=== PATIENT | female | born 1950 | race Caucasian/White ===

== ENCOUNTER 2016-05-08 06:05 | Day surgery (SDC) | payer MEDICARE, OTHER ==
[2016-05-08] MEDS ORDERED: Lactated Ringers 1,000 ML IV ONE (06:18)
[2016-05-08] MEDS: Lactated Ringers 1,000 ML IV SCH ×2 (06:40→06:41)
[2016-05-08] MEDS ORDERED: Ketamine HCl 50 MG/ML IJ ONE (08:00)
[2016-05-08 09:55] VITALS: BP 147/78; PULSE 62; O2SAT 96
--- NOTE | 2016-05-08 11:09 | OP ---
SURGERY DATE/TIME: 05/08/2016 0740 PREOPERATIVE DIAGNOSES: 1) Epigastric pain. 2) Change in bowel habits. POSTOPERATIVE DIAGNOSES: 1) Mild to moderate gastritis. 2) Grade II esophagitis. 3) Scattered sigmoid diverticula. PROCEDURES: 1) Esophagogastroduodenoscopy with biopsy. 2) Colonoscopy. SURGEON: Dr. Stevenson. ANESTHESIA: Medications were given by the anesthesia department. BRIEF HISTORY: The patient is a 65 year old white female presenting now for endoscopic evaluation. The patient was felt to need to have evaluation due to presence of epigastric pain. The patient also reports abdominal pain off and on throughout the abdomen. She also had recent change in her bowel habits. The patient was felt the need to have endoscopic evaluation and she was appraised of the risks of the procedure including the risk of perforation, phlebitis, untoward reaction to medication, bleeding, missed lesions. The patient verbalized her understanding and desired to have the procedure performed. DESCRIPTION OF PROCEDURE: The patient was given the medications by the anesthesia department. She had continuous pulse oximetry, ECG monitoring, intermittent blood pressure monitoring and tidal CO2 monitoring during the examination. She was placed in the left lateral decubitus position. A bite block was placed and the flexible Olympus gastroscope was used to intubate the oropharynx. The scope was easily passed in the esophagus with ease and this appeared to be normal to the gastroesophageal junction where there appeared to be some erythema and friability. No mucosal lesions otherwise were noted. The scope was passed into the stomach where normal gastric rugal folds were seen and these distended nicely with insufflation of air. The scope was passed along the greater curvature of the stomach to the antrum. The pylorus was encountered and intubated. The duodenum inspected and found to be normal. The scope was withdrawn towards the stomach. A retroflex view was obtained of the lesser curvature, fundus and cardia regions of the stomach and these appeared normal. The scope was then redirected towards the gastric antrum and biopsies were obtained to rule out the presence of Helicobacter pylori-type organisms. The scope was removed from the patient. Next, a digital rectal examination was performed and revealed normal anal sphincter tone and no masses and no significant hemorrhoids. The flexible Olympus pediatric colonoscope was used to intubate the rectum. A view of the colon was developed sequentially to the cecum. Upon insertion and withdrawal, there was noted a few scattered sigmoid diverticula but no other mucosal lesions were encountered. The scope was removed from the patient who tolerated the procedure well and was sent back to OP recovery in good condition. The prep was noted to be fair to good.
[2016-05-08] MEDS ORDERED: DIPRIVAN 200 MG/20 ML IV ONE (15:18)
== END 2016-05-08 09:25 | disposition home or self-care (01) ==
LOC: SDC 06:05
PROVIDERS: ATTEND Family Medicine
PROC: 0DB68ZX Excision of Stomach, Via Natural or Artificial Opening Endoscopic, Diagnostic (ICD-10-PCS; principal; 2016-05-08)
PROC: 0DJD8ZZ Inspection of Lower Intestinal Tract, Via Natural or Artificial Opening Endoscopic (ICD-10-PCS; 2016-05-08)
DX: K29.70 Gastritis, unspecified, without bleeding (principal); K20.9 Esophagitis, unspecified; K57.90 Diverticulosis of intestine, part unspecified, without perforation or abscess without bleeding; R19.4 Change in bowel habit; I10 Essential (primary) hypertension; E78.5 Hyperlipidemia, unspecified; K21.9 Gastro-esophageal reflux disease without esophagitis
CPT/HCPCS: 00740; 00810; 36415; 88305; J2704

== ENCOUNTER 2017-11-19 11:12 | Emergency (ER) | payer MEDICARE, OTHER ==
[2017-11-19] MEDS ORDERED: BABY ASPIRIN 81 MG CHEW PO ONE (12:10)
--- NOTE | 2017-11-19 12:10 | ERPHSYRPT ---
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 states her pain radiated to the shoulders along her back "like where the yolk of a shirt would be", states the pain is worse when she makes certain movements. pt states she drove over here yesterday but the pain stopped so she decided to go home. Triage Nursing Assessment: pt is aox3, pupils perrl, pt afebrile, resps easy and non labored, radial pulses are strong and equal, slight edema noted to the bilat lower extremities. pt has no chest pain at this time. pt appears is no distress. Physician History: Patient is a 66-year-old female with her complaining of a sudden onset of central chest pain yesterday morning that lasted 45 minutes. It resolved but then she had chest "discomfort" later on in the day. Today she still has chest discomfort. Currently she has no chest pain or pressure at all. Yesterday at its peak the chest pain was a 6 out of 10. The chest pressure has been a 3 out of 10. She denies shortness of breath, nausea, or sweating. She also complains yesterday of pain radiating along her back from shoulder to shoulder. Her past medical history is significant for hypertension and high cholesterol. Timing/Duration: yesterday, resolved prior to arrival, sudden Activities at Onset: none Quality: pressure Location: substernal Chest Pain Radiation: back Severity of Pain-Max: moderate Severity of Pain-Current: none Associated Symptoms: denies symptoms Prior Chest Pain/Cardiac Workup: no prior chest pain Nitro Today/Relief: no nitro taken today Aspirin Treatment Today: 81 mg x 4, provided by ED Allergies/Adverse Reactions: No Known Drug Allergies Allergy (Verified 11/19/17 11:39) Home Medications: Aspirin/Dipyridamole [Aggrenox 25 mg-200 mg Capsule] 1 each PO BID 05/05/16 [ History] Benazepril HCl 10 mg [Lotensin 10 MG] 10 mg PO DAILY 05/05/16 [History] Bisoprolol/Hydrochlorothiazide [Bisoprolol-Hctz 10-6.25 mg Tab] 1 each PO DAILY 05/05/16 [History] Folic Acid/Multivit-Min/Lutein [Centrum Silver Chewable Tablet] 1 each PO DAILY 05/05/16 [History] Simvastatin 20 mg PO DAILY 05/05/16 [History] Hx Tetanus, Diphtheria Vaccination/Date Given: Yes Hx Influenza Vaccination/Date Given: Yes Hx Pneumococcal Vaccination/Date Given: Yes Immunizations Up to Date: Yes - Review of Systems Constitutional: No Fever, No Chills Eyes: No Symptoms Ears, Nose, & Throat: No Symptoms Respiratory: No Cough, No Dyspnea Cardiac: Chest Pain Abdominal/Gastrointestinal: No Abdominal Pain, No Nausea, No Vomiting, No Diarrhea Genitourinary Symptoms: No Dysuria Musculoskeletal: No Back Pain, No Neck Pain Skin: No Rash Neurological: No Dizziness, No Focal Weakness, No Sensory Changes Psychological: No Symptoms Endocrine: No Symptoms Hematologic/Lymphatic: No Symptoms Immunological/Allergic: No Symptoms All Other Systems: Reviewed and Negative - Past Medical History Pertinent Past Medical History: Yes Neurological History: TIA ENT History: Cataracts Cardiac History: High Cholesterol, Hypertension Respiratory History: Pneumonia Endocrine Medical History: No Pertinent History Musculoskeletal History: No Pertinent History GI Medical History: GERD History: No Pertinent History Psycho-Social History: No Pertinent History Female Reproductive Disorders: No Pertinent History - Past Surgical History Past Surgical History: Yes Neuro Surgical History: No Pertinent History Cardiac: No Pertinent History Respiratory: No Pertinent History Gastrointestinal: No Pertinent History Musculoskeletal: No Pertinent History Female Surgical History: Section, Hysterectomy - Social History Smoking Status: Never smoker Exposure to second hand smoke: No Drug Use: none Patient Lives Alone: No Significant Family History: heart disease, hypertension - Female History Hx Now: No - Nursing Vital Signs Nursing Vital Signs: Initial Vital Signs Temperature 98.4 F 11/19/17 11:28 Pulse Rate 62 11/19/17 11:28 Respiratory Rate 20 11/19/17 11:28 Blood Pressure 183/84 11/19/17 11:28 O2 Sat by Pulse Oximetry 100 11/19/17 11:28 Pain Scale Pain Intensity 0 - Physical Exam General Appearance: no apparent distress, alert Eye Exam: PERRL/EOMI, eyes nml inspection Ears, Nose, Throat Exam: normal ENT inspection, moist mucous membranes Neck Exam: normal inspection, non-tender, supple, full range of motion Respiratory Exam: normal breath sounds, lungs clear, No respiratory distress Cardiovascular Exam: regular rate/rhythm, normal heart sounds Gastrointestinal/Abdomen Exam: soft, No tenderness, No mass Pelvic Exam: not done Rectal Exam: not done Back Exam: normal inspection, No CVA tenderness, No vertebral tenderness Extremity Exam: normal inspection, normal range of motion Neurologic Exam: alert, oriented x 3, cooperative, normal mood/affect, sensation nml, No motor deficits Skin Exam: normal color, warm, dry SpO2 Interpretation: normal SpO2: 100 Oxygen Delivery: Room Air - Course EKG Interpreted by Me: RATE, Sinus Rhythm, NORMAL INTERVALS, NORMAL QRS, NORMAL ST-T - Radiology Exams Chest X-ray Interpretation: Reviewed by me, Teleradiologist Report (per Dr Hutton), Negative Ordered Tests: Active Orders 24 hr Category Date Time Status Recoater STAT Care 11/19/17 12:11 Active EKG-ER Only STAT Care 11/19/17 12:10 Active IV Insertion STAT Care 11/19/17 12:10 Active CHEST 2 VIEWS (PA AND LAT) Stat Exams 11/19/17 12:10 Completed CBC W DIFF Stat Lab 11/19/17 12:14 Completed CMP Stat Lab 11/19/17 12:14 Completed NT PRO BNP Stat Lab 11/19/17 12:14 Completed TROPONIN Q3H Lab 11/19/17 12:14 Completed TROPONIN Q3H Lab 11/19/17 15:15 Ordered TROPONIN Q3H Lab 11/19/17 18:15 Ordered TROPONIN Q3H Lab 11/19/17 21:15 Ordered TROPONIN Q3H Lab 11/20/17 00:15 Ordered Medication Summary Discontinued Medications Generic Name Dose Route Start Last Admin Trade Name Freq PRN Reason Stop Dose Admin Aspirin 324 mg 11/19/17 12:10 11/19/17 12:36 Baby Aspirin 81 Mg Chew PO 11/19/17 12:11 324 mg STAT ONE Administration Aspirin Confirm 11/19/17 12:34 Baby Aspirin 81 Mg Chew Administered 11/19/17 12:35 Dose 324 mg .ROUTE .STK-MED ONE Lab/Rad Data: Laboratory Result Diagrams 11/19/17 12:14 11/19/17 12:14 Laboratory Results 11/19/17 11/19/17 11/19/17 Range/Units 12:14 12:14 12:14 WBC 7.3 (4.0-10.5) K/mm3 RBC 4.54 (4.1-5.4) M/mm3 Hgb 14.6 (12.0-16.0) gm/dl Hct 43.8 (35-47) % MCV 96.5 (78-100) fl MCH 32.2 H (26-32) pg MCHC 33.3 (32-36) g/dl RDW 13.1 (11.5-14.0) % Plt Count 219 (150-450) K/mm3 MPV 10.9 H (6-9.5) fl Gran % 42.6 (36.0-66.0) % Eos # (Auto) 0.21 (0-0.5) Absolute Lymphs (auto) 3.23 (1.0-4.6) Absolute Monos (auto) 0.74 (0.0-1.3) Lymphocytes % 44.1 H (24.0-44.0) % Monocytes % 10.1 (0.0-12.0) % Eosinophils % 2.9 (0.00-5.0) % Basophils % 0.3 (0.0-0.4) % Absolute Granulocytes 3.12 (1.4-6.9) Basophils # 0.02 (0-0.4) Sodium 140 (137-145) mmol/L Potassium 4.3 (3.5-5.1) mmol/L Chloride 100 (98-107) mmol/L Carbon Dioxide 30 (22-30) mmol/L Anion Gap 14.8 (5-15) MEQ/L BUN 22 H (7-17) mg/dL Creatinine 0.68 (0.52-1.04) mg/dL Estimated GFR > 60.0 ML/MIN Glucose 104 (74-106) mg/dL Calcium 9.9 (8.4-10.2) mg/dL Total Bilirubin 0.70 (0.2-1.3) mg/dL AST 34 (14-36) U/L ALT 26 (0-35) U/L Alkaline Phosphatase 61 (38-126) U/L Troponin I < 0.012 (0.000-0.034) ng/mL NT-Pro-B Natriuret Pep 93.7 (0-900) pg/mL Serum Total Protein 8.0 (6.3-8.2) g/dL Albumin 4.7 (3.5-5.0) g/dL - Progress Progress: improved Counseled pt/family regarding: lab results, diagnosis, need for follow-up, rad results - Departure Time of Disposition: 13:56 Departure Disposition: Home Clinical Impression: Chest pain, HTN (hypertension) Condition: Stable Critical Care Time: No Referrals: DONNY STEVENSON [Primary Care Provider] - Additional Instructions: You had chest pain for more than one day. Your laboratory results including her troponin were all negative. Your chest x-ray was negative. EKG was normal. Your blood pressure has been elevated in the ER and use it was elevated at home recently. increased her benazepril from 10 to 20 mg daily. Follow-up with Dr. Stevenson this week.
[2017-11-19 12:17] LABS: BASOPHIL % 0.3 % (0.0-0.4); Basophil (Absolute #) 0.02 (0-0.4); Eosinophil % 2.9 % (0.00-5.0); Eosinophil (Absolute #) 0.21 (0-0.5); Granulocyte Absolute (ANC) 3.12 (1.4-6.9); Granulocytes % 42.6 % (36.0-66.0); Hematocrit 43.8 % (35-47); Hemoglobin 14.6 gm/dl (12.0-16.0); Lymphocyte (Absolute #) 3.23 (1.0-4.6); Lymphocytes % 44.1 % (24.0-44.0); Mean Cell Volume 96.5 fl (78-100); Mean Corpuscular Hemoglobin 32.2 pg (26-32); Mean Corpuscular Hgb Concent. 33.3 g/dl (32-36); Mean Platelet Volume 10.9 fl (6-9.5); Monocyte (Absolute #) 0.74 (0.0-1.3); Monocytes % 10.1 % (0.0-12.0); Platelet Count 219 K/mm3 (150-450); Red Blood Count 4.54 M/mm3 (4.1-5.4); Red Cell Distribution Width 13.1 % (11.5-14.0); White Blood Count 7.3 K/mm3 (4.0-10.5)
[2017-11-19] MEDS ORDERED: BABY ASPIRIN 81 MG CHEW ONE (12:34)
--- NOTE | 2017-11-19 12:35 | XRAY ---
Indication: Chest pain. Comparison: October 22, 2015. PA/lateral chest again demonstrates normal heart or lungs. Bony thorax intact with minimal degenerative changes. No new/acute findings.
[2017-11-19 12:43] LABS: ALBUMIN 4.7 g/dL (3.5-5.0); ALKALINE PHOSPHATASE 61 U/L (38-126); ANION GAP 14.8 MEQ/L (5-15); BLOOD UREA NITROGEN 22 mg/dL (7-17); CHLORIDE 100 mmol/L (98-107); Calcium 9.9 mg/dL (8.4-10.2); Carbon Dioxide 30 mmol/L (22-30); Creatinine 1 0.68 mg/dL (0.52-1.04); Glucose 104 mg/dL (74-106); NT PRO BNP 93.7 pg/mL (0-900); Potassium 4.3 mmol/L (3.5-5.1); SGOT/AST 34 U/L (14-36); SGPT/ALT 26 U/L (0-35); SODIUM 140 mmol/L (137-145)
[2017-11-19 14:22] VITALS: BP 137/76; PULSE 63; O2SAT 99
== END 2017-11-19 14:20 | disposition home or self-care (01) ==
LOC: ED 11:12
DX: R07.9 Chest pain, unspecified (principal); I10 Essential (primary) hypertension; Z79.899 Other long term (current) drug therapy
CPT/HCPCS: 36000; 36415; 71046; 80053; 83880; 84484; 85025; 93005; 93041; 99284; A9270-GY

== ENCOUNTER 2019-03-15 09:21 | Emergency (ER) | payer MEDICARE, OTHER ==
--- NOTE | 2019-03-15 10:08 | ERPHSYRPT ---
- History of Present Illness Time Seen by Provider: 03/15/19 10:05 Source: patient, family Exam Limitations: no limitations Patient Subjective Stated Complaint: pain in right knee that radiates down right lower leg. increased pain behind right knee. saw inlayer at clinic yesterday and had xray done. is to f/u with stone next week. states swelling has decreased since awaking this am. Triage Nursing Assessment: ambulated to room per self. skin w/d, color normal, resp nonlabored. right lower leg swollen and tender to touch behind right knee. moderate swelling behind knee. good pedal pulse. leg normal color and warm. Physician History: pain in right knee that radiates down right lower leg. increased pain behind right knee. saw inlayer at clinic yesterday and had xray done. is to f/u with stone next week. states swelling has decreased since awaking this am. Method of Injury: unknown Occurred: last week Severity of Pain-Max: none Severity of Pain-Current: none Lower Extremities Pain: leg: right, knee: right (pain and swelling behind knee) Associated Symptoms: none Allergies/Adverse Reactions: No Known Drug Allergies Allergy (Verified 03/15/19 09:56) Home Medications: Aspirin/Dipyridamole [Aggrenox 25 mg-200 mg Capsule] 1 each PO BID 05/05/16 [ History] Benazepril HCl 10 mg [Lotensin 10 MG] 10 mg PO BID 05/05/16 [History] Bisoprolol/Hydrochlorothiazide [Bisoprolol-Hctz 10-6.25 mg Tab] 1 each PO DAILY 05/05/16 [History] Folic Acid/Multivit-Min/Lutein [Centrum Silver Chewable Tablet] 1 each PO DAILY 05/05/16 [History] Atorvastatin Calcium 20 mg PO HS 03/15/19 [History] Hx Tetanus, Diphtheria Vaccination/Date Given: No Hx Influenza Vaccination/Date Given: No Hx Pneumococcal Vaccination/Date Given: Yes - Review of Systems Constitutional: No Fever, No Chills Eyes: No Symptoms Ears, Nose, & Throat: No Symptoms Respiratory: No Cough, No Dyspnea Cardiac: No Chest Pain, No Edema, No Syncope Abdominal/Gastrointestinal: No Abdominal Pain, No Nausea, No Vomiting, No Diarrhea Genitourinary Symptoms: No Dysuria Musculoskeletal: No Back Pain, No Neck Pain Skin: No Rash Neurological: No Dizziness, No Focal Weakness, No Gait Changes, No Sensory Changes Psychological: No Symptoms Endocrine: No Symptoms Hematologic/Lymphatic: No Symptoms Immunological/Allergic: No Symptoms All Other Systems: Reviewed and Negative - Past Medical History Pertinent Past Medical History: Yes Neurological History: TIA ENT History: Cataracts Cardiac History: High Cholesterol, Hypertension Respiratory History: Pneumonia Endocrine Medical History: No Pertinent History Musculoskeletal History: No Pertinent History GI Medical History: GERD History: No Pertinent History Psycho-Social History: No Pertinent History Female Reproductive Disorders: No Pertinent History - Past Surgical History Past Surgical History: Yes Neuro Surgical History: No Pertinent History Cardiac: No Pertinent History Respiratory: No Pertinent History Gastrointestinal: No Pertinent History Musculoskeletal: No Pertinent History Female Surgical History: Section, Hysterectomy - Social History Smoking Status: Never smoker Exposure to second hand smoke: No Drug Use: none Patient Lives Alone: No Significant Family History: heart disease, hypertension - Female History Hx Now: No - Nursing Vital Signs Nursing Vital Signs: Initial Vital Signs Temperature 98.2 F 03/15/19 09:33 Pulse Rate 66 03/15/19 09:33 Respiratory Rate 16 03/15/19 09:33 Blood Pressure 153/74 03/15/19 09:33 O2 Sat by Pulse Oximetry 99 03/15/19 09:33 Pain Scale Pain Intensity 7 - Physical Exam General Appearance: alert Eyes, Ears, Nose, Throat Exam: moist mucous membranes Neck Exam: non-tender, supple Cardiovascular/Respiratory Exam: chest non-tender, normal breath sounds, regular rate/rhythm, no respiratory distress Gastrointestinal/Abdominal Exam: non-tender, guarding Back Exam: normal inspection, No vertebral tenderness Legs Exam: right leg: soft tissue tenderness (right popliteal area), swelling Knees Exam: right knee: swelling (posterior right knee) Neuro/Tendon Exam: normal sensation, normal motor functions Mental Status Exam: alert, oriented x 3, cooperative Skin Exam: normal color, warm, dry SpO2 Interpretation: normal SpO2: 99 O2 Delivery: Room Air - Course Nursing assessment & vital signs reviewed: Yes - Radiology Ultrasound Exam Venous Lower Extremity Ultrasound: tele radiology report (negative for DVT) Ordered Tests: Active Orders 24 hr Category Date Time Status VENOUS UNILAT/LIMITED EXTREMIT [US] Stat Exams 03/15/19 Ordered - Progress Progress: unchanged Counseled pt/family regarding: diagnosis, need for follow-up, rad results - Departure Departure Disposition: Home Clinical Impression: Pain in right leg Condition: Stable Critical Care Time: No Referrals: DONNY SZYMANSKI [Primary Care Provider] - Additional Instructions: IRASEMA VALENCIA was seen on 03/15/19 n the Emergency Room. At that time you were treated for an emergent condition, during your visit Laboratory, Radiology and/or other procedures may have been ordered. It is very important that you follow-up with your Primary Care Physician DONNY SZYMANSKI within the next 24-48 hours to review your Emergency Room visit and the final results of testing that was ordered. Some test results such as Urine Cultures, Blood Cultures, and other cultures if ordered will not be finalized for 24-48 hours. If you do not have a Primary Care Provider please call the medical records department at [phone] ext [phone] to obtain a copy of your results or you may sign into our patient portal to obtain these results by visiting us @ [email or web address] and completing the following steps: 1. Click on the Patient Portal link 2. Click the Patient Self Enrollment Link to complete the enrollment form and entering your 3. Once the enrollment form is completed you will receive an email with a temporary ID and password at the email address you provided. 4. Next choose a user name and password. Your user name must be at least 4 characters long and your password must be at least 4 characters long. 5. Choose a security question from the list and provide your answer to the question. If you already have signed into the Health Portal you may access your Health Care Information 02/10 by the following steps: 1. Login to our website @ [email or web address] 2. Enter your original user name and password. FAQS The [facility] Health Portal is an online tool that contains your Lab Results, Radiology Reports, Visit History, Discharge Instructions and Health Summary Lab and Radiology Results will not be available for 72 hours on the portal. The Portal is a secure site, passwords are encryted and URLs are re-written so they cannot be copied and pasted. You and authorized family members are the only ones who can access your Portal. Also there is a timeout feature that protects your information if you leave the Portal page open. If you have technical difficulty please use the Contact Us link on the page this will allow you to submit any questions you have regarding the Portal or you may contact the Medical Record Department at [phone].
[2019-03-15 10:22] VITALS: BP 144/61; PULSE 58
[2019-03-15 10:54] VITALS: O2SAT 99
--- NOTE | 2019-03-15 19:53 | XRAY ---
Indication: Right leg swelling. Current blood thinner therapy. Two-dimensional sonogram and color Doppler imaging of the major venous vessels of the right leg was performed. Comparison: None No thrombus seen in the examined deep venous vessels of the right leg including greater saphenous vein. Veins demonstrate normal compressibility. Venous waveforms are normal with and without augmentation. Impression: Right leg negative for DVT. Comment: Preliminary report was given.
== END 2019-03-15 11:21 | disposition home or self-care (01) ==
LOC: ED 09:21
DX: M79.604 Pain in right leg (principal); M25.561 Pain in right knee; I10 Essential (primary) hypertension; E78.00 Pure hypercholesterolemia, unspecified; Z79.899 Other long term (current) drug therapy; Z86.73 Personal history of transient ischemic attack (TIA), and cerebral infarction without residual deficits
CPT/HCPCS: 93971; 99283

== ENCOUNTER 2023-02-09 19:03 | Emergency (ER) | payer MEDICARE, OTHER ==
[2023-02-09 19:32] VITALS: TEMP 97.8
[2023-02-09] MEDS ORDERED: BABY ASPIRIN 81 MG CHEW PO ONE (19:34)
[2023-02-09] MEDS ORDERED: BABY ASPIRIN 81 MG CHEW ONE (19:37)
--- NOTE | 2023-02-09 19:40 | ERPHSYRPT ---
- History of Present Illness Source: patient, other ( ) Exam Limitations: no limitations Patient Subjective Stated Complaint: pt states that she was cutting her daughters hair when she began to have a sharp pain in her upper left that radiates to left lower arm Triage Nursing Assessment: pt ambulated into the er; pt is axo x4; c/o left arm pain; pt states that pain is radiating from left upper arm to left lower arm; strong left radial pulse; strong left brachial pulse; clear apical pulse; clear lung sounds in all lobes; skin PDW; hypertensive Physician History: Patient is a 72-year-old female who presents with left shoulder pain beginning approximately 1814 ton that occurred while patient was doing her daughter's hair. Patient pain was described as sharp and started to radiate down her left upper extremity and is now described as an ache. She denies chest pain, dyspnea, nausea, vomiting, and diaphoresis. Patient denies any history of CAD or ID. She does have a history of hypertension and hyperlipidemia but denies tobacco use and diabetes. Patient does see a dental cream maker once a year for generalized checkup. She has also had some TIAs in the past any residual focal weakness. She did not take an aspirin a but does take Plavix once a day. Pain is 6 out of 10 at present has been up to 8 out of 10. Occurred: other (1814) Method of Injury: unknown (Patient denies any injury.) Quality: constant, aching, sharpness Severity of Pain-Max: severe Severity of Pain-Current: moderate Extremities Pain Location: shoulder: left, arm: left Modifying Factors: Improves With: nothing Associated Symptoms: none Allergies/Adverse Reactions: No Known Drug Allergies Allergy (Verified 02/09/23 19:09) Home Medications: Benazepril HCl [Lotensin 10 MG] 20 mg PO BID 05/05/16 [History] Bisoprolol/Hydrochlorothiazide [Bisoprolol-Hctz 10-6.25 mg Tab] 1 each PO DAILY 05/05/16 [History] Folic Acid/Multivit-Min/Lutein [Centrum Silver Chewable Tablet] 1 each PO DAILY 05/05/16 [History] Atorvastatin Calcium 40 mg PO HS 03/15/19 [History] Clopidogrel Bisulfate [PLAVIX Tablet] 75 mg PO DAILY 02/09/23 [History] Omeprazole 40 mg PO DAILY 02/09/23 [History] Hx Tetanus, Diphtheria Vaccination/Date Given: No Hx Influenza Vaccination/Date Given: No Hx Pneumococcal Vaccination/Date Given: Yes Travel Risk - International Travel Have you traveled outside of the country in past 3 weeks: No - Coronavirus Screening Are you exhibiting any of the following symptoms?: No Close contact with a COVID-19 positive Pt in past 14-21 Days: No - Vaccine Status Have you recieved a Covid-19 vaccination: Yes Uniformer: Unknown - Vaccination Dates Dates if Unknown: 2020 - Review of Systems Constitutional: No Symptoms Eyes: No Symptoms Ears, Nose, & Throat: No Symptoms Respiratory: No Symptoms Cardiac: No Symptoms, No Chest Pain Abdominal/Gastrointestinal: No Symptoms Genitourinary Symptoms: No Symptoms Musculoskeletal: No Symptoms Skin: No Symptoms Neurological: No Symptoms Psychological: No Symptoms Endocrine: No Symptoms Hematologic/Lymphatic: No Symptoms Immunological/Allergic: No Symptoms - Past Medical History Pertinent Past Medical History: Yes Neurological History: TIA ENT History: Cataracts Cardiac History: High Cholesterol, Hypertension Respiratory History: Pneumonia Endocrine Medical History: No Pertinent History Musculoskeletal History: No Pertinent History GI Medical History: GERD History: No Pertinent History Psycho-Social History: Depression Female Reproductive Disorders: No Pertinent History - Past Surgical History Past Surgical History: Yes Neuro Surgical History: No Pertinent History Cardiac: No Pertinent History Respiratory: No Pertinent History Gastrointestinal: No Pertinent History Genitourinary: No Pertinent History Musculoskeletal: No Pertinent History Female Surgical History: Hysterectomy, Section - Social History Smoking Status: Never smoker Exposure to second hand smoke: No Drug Use: none Patient Lives Alone: No Significant Family History: heart disease, hypertension - Nursing Vital Signs Nursing Vital Signs: Initial Vital Signs Temperature 97.8 F 02/09/23 19:05 Pulse Rate 76 02/09/23 19:05 Respiratory Rate 16 02/09/23 19:05 Blood Pressure 184/79 02/09/23 19:05 O2 Sat by Pulse Oximetry 97 02/09/23 19:05 Pain Scale Pain Intensity 2 Hypertensive - Physical Exam General Appearance: no apparent distress Eyes, Ears, Nose, Throat Exam: normal ENT inspection, TMs normal, pharynx fede l, moist mucous membranes Neck Exam: normal inspection, non-tender, supple, full range of motion, No Brudzinski, No Kernig's, No meningismus, No carotid bruit Cardiovascular/Respiratory Exam: chest non-tender, normal breath sounds, regular rate/rhythm, heart sounds normal Abdominal Exam: non-tender, soft Back Exam: normal inspection, normal range of motion, No CVA tenderness, No vertebral tenderness Shoulder Exam: normal inspection, non-tender, no evidence of injury, normal ROM Elbow/Forearm Exam: normal inspection, non-tender, no evidence of injury, normal ROM Wrist Exam: normal inspection, non-tender, no evidence of injury Hand Exam: normal inspection, non-tender, no evidence of injury DTR - Upper Extremity Exam: bicep (R): 2+, bicep (L): 2+ Neuro/Tendon Exam: normal sensation, normal motor functions, normal tendon functions, responds to pain, no evidence tendon injury, No motor deficit, No sensory deficit Mental Status Exam: alert, oriented x 3, cooperative Skin Exam: normal color, warm, dry SpO2 Interpretation: normal, borderline oxygenation SpO2: 97 O2 Delivery: Room Air - Course Nursing assessment & vital signs reviewed: Yes EKG Interpreted by Me: RATE (Normal sinus rhythm/rate 69/normal QT-QTc/low voltage/flat T wave in aVF but overall within normal limits/Q wave in 3 and aVF./No acute ST segment changes.) - Radiology Exams Chest X-ray Interpretation: Interpreted by me (Portable chest x-ray no acute disease per ER read-slightly rotated.) - CT Exams Chest CT Interpretation: Tele-radiologist Report (CT of the chest-no evidence of PE/some chronic bronchitis changes otherwise negative.) Ordered Tests: Active Orders 24 hr Category Date Time Status EKG-ER Only STAT Care 02/09/23 19:34 Active CHEST 1 VIEW (PORTABLE) Stat Exams 02/09/23 19:34 Taken CHEST WITH CONTRAST [CT] Stat Exams 02/09/23 22:29 Completed CBC W DIFF Stat Lab 02/09/23 19:49 Completed CMP Stat Lab 02/09/23 19:49 Completed D-DIMER QUANTITATIVE Stat Lab 02/09/23 19:30 Completed NT PRO BNPII Stat Lab 02/09/23 19:49 Completed PROTIME WITH INR Stat Lab 02/09/23 19:49 Completed PTT Stat Lab 02/09/23 19:49 Completed TROPONIN Q4H Lab 02/09/23 19:49 Completed TROPONIN Q4H Lab 02/09/23 22:00 Completed TROPONIN Q4H Lab 02/10/23 03:45 Ordered Medication Summary Discontinued Medications Generic Name Dose Route Start Last Admin Trade Name Alexander PRN Reason Stop Dose Admin Aspirin 324 mg 02/09/23 19:34 02/09/23 19:38 Aspirin 81 Mg Tab.Chew PO 02/09/23 19:35 324 mg STAT ONE Administration Aspirin Confirm 02/09/23 19:37 Aspirin 81 Mg Tab.Chew Administered 02/09/23 19:38 Dose 324 mg .ROUTE .STK-MED ONE Morphine Sulfate 2 mg 02/09/23 19:51 02/09/23 19:56 Morphine Sulfate 2 Mg/Ml Inj IV 02/09/23 19:52 Not Given STAT ONE Ondansetron HCl 4 mg 02/09/23 19:52 02/09/23 19:56 Ondansetron Hcl 4 Mg/2 Ml Vial IV 02/09/23 19:53 Not Given STAT ONE Ondansetron HCl Confirm 02/09/23 19:55 Ondansetron Hcl 4 Mg/2 Ml Vial Administered 02/09/23 19:56 Dose 4 mg .ROUTE .STK-MED ONE Lab/Rad Data: Laboratory Result Diagrams 02/09/23 19:49 02/09/23 19:49 Laboratory Results 02/09/23 02/09/23 02/09/23 Range/Units 22:00 19:49 19:49 WBC (4.0-10.5) x10^3/uL RBC (4.1-5.4) x10^6/uL Hgb (12.0-16.0) g/dL Hct (35-47) % MCV (78-100) fL MCH (26-32) pg MCHC (32-36) g/dL RDW (11.5-14.0) % Plt Count (150-450) x10^3/uL MPV (7.5-11.0) fL Gran % (36.0-66.0) % Immature Gran % (Auto) (0.00-0.4) % Nucleat RBC Rel Count (0.00-0.1) % Eos # (Auto) (0-0.5) x10^3/uL Immature Gran # (Auto) (0.00-0.03) x10^3u/L Absolute Lymphs (auto) (1.0-4.6) x10^3/uL Absolute Monos (auto) (0.0-1.3) x10^3/uL Absolute Nucleated RBC (0.00-0.01) x10^3u/L Lymphocytes % (24.0-44.0) % Monocytes % (0.0-12.0) % Eosinophils % (0.00-5.0) % Basophils % (0.0-0.4) % Absolute Granulocytes (1.4-6.9) x10^3/uL Basophils # (0-0.4) x10^3/uL PT 11.4 (9.4-12.5) SECONDS INR 1.05 (0.8-3.0) APTT 24.1 L (25.1-36.5) SECONDS D-Dimer (0.0-0.50) mg/L Sodium (137-145) mmol/L Potassium (3.5-5.1) mmol/L Chloride (98-107) mmol/L Carbon Dioxide (22-30) mmol/L Anion Gap (5-15) MEQ/L BUN (7-17) mg/dL Creatinine (0.52-1.04) mg/dL Estimated GFR ML/MIN Glucose (74-106) mg/dL Calcium (8.4-10.2) mg/dL Total Bilirubin (0.2-1.3) mg/dL AST (14-36) U/L ALT (0-35) U/L Alkaline Phosphatase (38-126) U/L Troponin I < 0.012 < 0.012 (0.000-0.034) ng/mL NT-Pro-B Natriuret Pep (<300) pg/mL Serum Total Protein (6.3-8.2) g/dL Albumin (3.5-5.0) g/dL 02/09/23 02/09/23 02/09/23 Range/Units 19:49 19:49 19:30 WBC 7.6 (4.0-10.5) x10^3/uL RBC 4.48 (4.1-5.4) x10^6/uL Hgb 13.6 (12.0-16.0) g/dL Hct 42.3 (35-47) % MCV 94.4 (78-100) fL MCH 30.4 (26-32) pg MCHC 32.2 (32-36) g/dL RDW 13.0 (11.5-14.0) % Plt Count 209 (150-450) x10^3/uL MPV 10.5 (7.5-11.0) fL Gran % 53.6 (36.0-66.0) % Immature Gran % (Auto) 0.3 (0.00-0.4) % Nucleat RBC Rel Count 0.0 (0.00-0.1) % Eos # (Auto) 0.29 (0-0.5) x10^3/uL Immature Gran # (Auto) 0.02 (0.00-0.03) x10^3u/L Absolute Lymphs (auto) 2.37 (1.0-4.6) x10^3/uL Absolute Monos (auto) 0.82 (0.0-1.3) x10^3/uL Absolute Nucleated RBC 0.00 (0.00-0.01) x10^3u/L Lymphocytes % 31.1 (24.0-44.0) % Monocytes % 10.7 (0.0-12.0) % Eosinophils % 3.8 (0.00-5.0) % Basophils % 0.5 (0.0-0.4) % Absolute Granulocytes 4.09 (1.4-6.9) x10^3/uL Basophils # 0.04 (0-0.4) x10^3/uL PT (9.4-12.5) SECONDS INR (0.8-3.0) APTT (25.1-36.5) SECONDS D-Dimer 0.66 H* (0.0-0.50) mg/L Sodium 135 L (137-145) mmol/L Potassium 4.4 (3.5-5.1) mmol/L Chloride 101 (98-107) mmol/L Carbon Dioxide 24 (22-30) mmol/L Anion Gap 14.8 (5-15) MEQ/L BUN 31 H (7-17) mg/dL Creatinine 0.90 (0.52-1.04) mg/dL Estimated GFR 67.5 ML/MIN Glucose 130 H (74-106) mg/dL Calcium 9.1 (8.4-10.2) mg/dL Total Bilirubin 0.40 (0.2-1.3) mg/dL AST 32 (14-36) U/L ALT 30 (0-35) U/L Alkaline Phosphatase 86 (38-126) U/L Troponin I (0.000-0.034) ng/mL NT-Pro-B Natriuret Pep 85.7 (<300) pg/mL Serum Total Protein 7.2 (6.3-8.2) g/dL Albumin 4.2 (3.5-5.0) g/dL - Progress Progress Note: 02/09/23 19:57 Nursing note and vital signs reviewed. No food or housing insecurities noted. 2 mg IV morphine/4 mL IV Zofran ordered for patient's pain but she refused. Additional history per patient's . Patient continued to refuse pain meds throughout stay. All lab results reviewed and shared thoroughly with patient and her . Chest x-ray result reviewed and read by ER physician and shared with patient and . Patient's troponin negative x 2. Patient had no chest pain or shortness of breath during entire stay. She later stated the pain was worse when she moved her Left upper extremity. stated that patient has been an extreme amount of sewing lately and moving a lot of stuff around the house, so pain could possibly due to overuse. She has good distal radial pulse, distal sensation, and capillary return of her left upper extremity. Patient advised to follow-up with her PCP on Sunday. Also advised to return to ER for any chest pain, any shortness of breath, worsening left shoulder pain. 02/10/23 00:33 Blood pressure elevated earlier this day but normalizing toward discharge. Counseled pt/family regarding: lab results, diagnosis, need for follow-up, rad results Medical Desision Making - Independent Historian Additional History obtained from: Spouse - Diagnostic Testing Radiological Interpretation: Interpreted by me, Reviewed by me, Teleradiologist Report - Risk of complications Low Risk: Low risk of morbidity from additional dx testing or treatment - Departure Departure Disposition: Home Clinical Impression: Left upper limb pain Condition: Stable Critical Care Time: No Referrals: DONNY SZYMANSKI [Primary Care Provider] - Follow up/PCP as directed Instructions: Bursitis (DC) Additional Instructions: Tylenol and/or Naprosyn for pain Heat to right shoulder. Follow-up with your family MD on Sunday about pain. Return to ER for increasing left shoulder pain, any chest pain, or shortness of breath.
[2023-02-09] MEDS ORDERED: MORPHINE SULFATE 2 MG INJ IV ONE (19:51)
[2023-02-09] MEDS ORDERED: Zofran 4 MG/2 ML VIAL IV ONE (19:52)
[2023-02-09 19:54] LABS: Absolute Neutrophil Ct (ANC) 4.09 x10^3/uL (1.4-6.9); BASOPHIL % 0.5 % (0.0-0.4); Basophil (Absolute #) 0.04 x10^3/uL (0-0.4); Eosinophil % 3.8 % (0.00-5.0); Eosinophil (Absolute #) 0.29 x10^3/uL (0-0.5); Hematocrit 42.3 % (35-47); Hemoglobin 13.6 g/dL (12.0-16.0); IMMATURE GRAN # 0.02 x10^3u/L (0.00-0.03); IMMATURE GRAN % 0.3 % (0.00-0.4); Lymphocyte (Absolute #) 2.37 x10^3/uL (1.0-4.6); Lymphocytes % 31.1 % (24.0-44.0); Mean Cell Volume 94.4 fL (78-100); Mean Corpuscular Hemoglobin 30.4 pg (26-32); Mean Corpuscular Hgb Concent. 32.2 g/dL (32-36); Mean Platelet Volume 10.5 fL (7.5-11.0); Monocyte (Absolute #) 0.82 x10^3/uL (0.0-1.3); Monocytes % 10.7 % (0.0-12.0); Neutrophil % 53.6 % (36.0-66.0); Platelet Count 209 x10^3/uL (150-450); Red Blood Count 4.48 x10^6/uL (4.1-5.4); White Blood Count 7.6 x10^3/uL (4.0-10.5)
[2023-02-09] MEDS ORDERED: Zofran 4 MG/2 ML VIAL ONE (19:55)
[2023-02-09 20:09] LABS: INR 1.05 (0.8-3.0); PROTIME 11.4 SECONDS (9.4-12.5); PTT 24.1 SECONDS (25.1-36.5)
[2023-02-09 20:13] LABS: ALBUMIN 4.2 g/dL (3.5-5.0); ANION GAP 14.8 MEQ/L (5-15); BILIRUBIN,TOTAL 0.4 mg/dL (0.2-1.3); Calcium 9.1 mg/dL (8.4-10.2); Creatinine 1 0.9 mg/dL (0.52-1.04); EST GLOMERULAR FILTRATION RATE 67.5 ML/MIN; NT PRO BNPII 85.7 pg/mL (<300); Potassium 4.4 mmol/L (3.5-5.1); Total Protein 7.2 g/dL (6.3-8.2)
--- NOTE | 2023-02-10 00:20 | XRAY ---
CLINICAL HISTORY:PE COMPARISON:CT dated 02/21/2017. TECHNIQUE:CT pulmonary angiogram was performed using intravenous contrast with sagittal and coronal reconstructions. FINDINGS: The pulmonary trunk, right and left pulmonary arteries with the ascending and descending branches are normal. No evidence of any focal filling defect is seen. The thoracic aorta shows atherosclerotic changes with calcified plaques. Re- demonstration of small 1-2.5mm calcific foci with thickened bronchus noted in the periphery of apical and posterior segments of right upper lobe, possibly representing broncholiths with chronic bronchitis. Subtle subpleural thin plate atelectasis and reticulations with haziness are seen in both lungs on posterior aspect. No significant mediastinal lymphadenopathy. No evidence of pleural/pericardial effusion. The thoracic spine shows degenerative changes. Healed fracture deformity of right 8th posterior rib is noted. Scanned upper abdomen appears unremarkable. IMPRESSION: 1. Unremarkable CT pulmonary angiography, no evidence of acute thromboembolism 2. Redemonstration of small 1-2.5mm calcific foci with thickened bronchus noted in the periphery of apical and posterior segments of right upper lobe, possibly representing broncholiths with chronic bronchitis. Electronically Signed by: Lorri Schuster MD. (02/10/2023 00:16:45 EST)
[2023-02-10 00:32] VITALS: BP 158/67; PULSE 64; RESP 18
[2023-02-10 00:33] VITALS: O2SAT 97
--- NOTE | 2023-02-10 07:18 | XRAY ---
Indication: Left upper extremity pain. Comparison: November 19, 2017 Portable apical lordotic chest again demonstrates normal heart and lungs with a few incidental tiny calcified granulomas. Bony thorax intact with mild degenerative changes. No new/acute findings.
== END 2023-02-10 00:36 | disposition home or self-care (01) ==
LOC: ED 19:03
DX: M79.602 Pain in left arm (principal); M25.512 Pain in left shoulder; I10 Essential (primary) hypertension; E78.5 Hyperlipidemia, unspecified; Z79.02 Long term (current) use of antithrombotics/antiplatelets; Z79.899 Other long term (current) drug therapy; Z86.73 Personal history of transient ischemic attack (TIA), and cerebral infarction without residual deficits
CPT/HCPCS: 36415; 71045; 71260; 80053; 83880; 84484; 85025; 85379; 85610; 85730; 93005; 99284; J2405; A9270-GY